=== PATIENT | female | born 1975 | race Caucasian/White ===

== ENCOUNTER 2022-09-23 12:31 | Outpatient (OUT) | payer MEDICAID, SELFPAY ==
--- NOTE | 2022-09-23 | ECG_ITS ---
[facility] Test Date: 2022-09-23 Pat Name: Steffany Lazaro Department: Room: - Gender: Female Instrument Person: : 1975 Requested By: LC JUAN Order Number: [id number] Reading MD: KAITLYNN SALAZAR Measurements Intervals [place] Rate: 64 P: 71 TX: 153 QRS: 83 QRSD: 78 T: 35 QT: 418 QTc: 432 Interpretive Statements SINUS RHYTHM No previous ECG available for comparison Electronically Signed On 09-25-2022 11:39:11 EDT by KAITLYNN SALAZAR
== END 2022-09-23 12:32 | disposition home or self-care (01) ==
LOC: CARD 12:32
PROVIDERS: PCP Family Medicine; Visit Provider Family Medicine
DX: I47.1 Supraventricular tachycardia (principal)
CPT/HCPCS: 93005